=== PATIENT | female | born 1950 | race Caucasian/White ===

== ENCOUNTER 2020-07-03 12:09 | Emergency (ER) | payer MEDICARE, MEDICAID ==
[~2020-07-03] VITALS: Ht 157.5 cm; Wt 89.0 kg
[2020-07-03] MEDS ORDERED: LISI-892 PO (12:33)
[2020-07-03] MEDS ORDERED: ASPI-1450 PO (12:33)
[2020-07-03] MEDS ORDERED: PERTUSS(ACELL),DIPH,TET VAC/PF 0.5 ML SYRINGE IM ONE (13:45)
[2020-07-03 15:44] VITALS: BP 122/70
== END 2020-07-03 15:58 | disposition home or self-care (01) ==
LOC: EMS 12:12
DX: S01.01XA Laceration without foreign body of scalp, initial encounter (principal); W22.8XXA Striking against or struck by other objects, initial encounter; Y93.89 Activity, other specified; Y92.89 Other specified places as the place of occurrence of the external cause; Y99.8 Other external cause status
CPT/HCPCS: 12002; 70450; 90471; 90715; 99284

== ENCOUNTER 2020-07-17 11:20 | Emergency (ER) | payer MEDICARE, MEDICAID ==
[~2020-07-17] VITALS: Ht 160 cm; Wt 89.0 kg
[~2020-07-17 11:20] MED LIST: ASPI-1450 PO; LISI-892 PO
[2020-07-17 11:25] VITALS: BP 150/81
== END 2020-07-17 11:54 | disposition home or self-care (01) ==
LOC: EMS 11:22
DX: S01.01XD Laceration without foreign body of scalp, subsequent encounter (principal); I10 Essential (primary) hypertension; Z79.82 Long term (current) use of aspirin; Z79.899 Other long term (current) drug therapy; X58.XXXD Exposure to other specified factors, subsequent encounter
CPT/HCPCS: 99281; Z7502